=== PATIENT | male | born 1935 | race Caucasian/White ===

== ENCOUNTER → 2016-12-18 | Outpatient (CLI) | payer MEDICARE, BC ==
[2016-12-18 09:41] LABS: CHLORIDE,CL 108 mmol/L (98-110); SODIUM,NA 139 mmol/L (136-146)
== END | disposition home or self-care (01) ==
LOC: MW.CHFP 08:59
PROVIDERS: ATTEND Family Medicine
DX: I50.1 Left ventricular failure, unspecified (principal); I25.10 Atherosclerotic heart disease of native coronary artery without angina pectoris; N18.3 Chronic kidney disease, stage 3 (moderate)
CPT/HCPCS: 36415; 80053; 80061; 99214

== ENCOUNTER 2020-06-14 01:26 | Emergency (ER) | payer MEDICARE, BC ==
[2020-06-14] MEDS ORDERED: Diphtheria,Pertussis(Acell),Tetanus Vaccine 0.5 ML Syringe IM ONE (01:31)
--- NOTE | 2020-06-14 01:34 | EDM.PDOC ---
ED HPI GENERAL MEDICAL PROBLEM - General Stated Complaint: FELL Time Seen by Provider: 06/14/20 01:29 Source of Information: Reports: Patient History Limitations: Reports: Other (dementia) - History of Present Illness INITIAL COMMENTS - FREE TEXT/NARRATIVE: 84M presents s/p fall. H/o dementia. Family heard patient fall in bathroom. He hit the side of his head and also had bleeding from RUE. Patient without complaints. - Related Data Allergies Allergy/AdvReac Type Severity Reaction Status Date / Time amoxicillin Allergy Cannot Verified 04/20/19 21:26 Remember carbamazepine [From Tegretol] Allergy Rash Verified 04/20/19 21:26 cefaclor [Cefaclor] Allergy Hives Verified 04/20/19 21:26 erythromycin base Allergy Cannot Verified 04/20/19 21:26 [From E.E.S.] Remember erythromycin lactobionate Allergy Hives Verified 04/20/19 21:26 [From Erythrocin] gentamicin [Gentamicin] Allergy Rash Verified 04/20/19 21:26 naproxen sodium [From Aleve] Allergy Stomach Verified 04/20/19 21:26 Upset oxaprozin [From Daypro] Allergy Stomach Verified 04/20/19 21:26 Upset oxycodone HCl [From Percocet] Allergy Weakness Verified 04/20/19 21:26 Penicillins Allergy Hives Verified 04/20/19 21:26 propoxyphene Allergy Cannot Verified 04/20/19 21:26 [From Darvocet-N 100] Remember simvastatin Allergy Blurred Verified 04/20/19 21:26 Vision tramadol Allergy Hallucinati Verified 04/20/19 21:26 ons vancomycin Allergy Rash Verified 04/20/19 21:26 Home Meds: Home Meds Aspirin [Lite Coat Aspirin] 325 mg PO DAILY 04/20/19 [History] Bumetanide 0.5 mg PO DAILY 04/20/19 [History] Metoprolol Tartrate 100 mg PO BID 04/20/19 [History] Pravastatin [Pravachol] 40 mg PO DAILY 04/20/19 [History] ramipriL [Ramipril] 2.5 mg PO DAILY 04/20/19 [History] Acetaminophen [Tylenol] 650 mg PO Q6H PRN tablet 04/24/19 [Rx] Past Medical History Cardiovascular History: Reports: High Cholesterol, Hypertension - Infectious Disease History Infectious Disease History: Reports: Chicken Pox - Past Surgical History Cardiovascular Surgical History: Reports: Coronary Artery Bypass GI Surgical History: Reports: Cholecystectomy, Hernia, Inguinal Musculoskeletal Surgical History: Reports: Other (See Below) Other Musculoskeletal Surgeries/Procedures:: Hip surgery x2, Social & Family History - Caffeine Use Caffeine Use: Reports: Coffee - Living Situation & Occupation Living situation: Reports: , with Spouse Occupation: Retired ED ROS GENERAL - Review of Systems Review Of Systems: Comprehensive ROS is negative, except as noted in HPI. ED EXAM, GENERAL - Physical Exam Exam: See Below Exam Limited By: No Limitations General Appearance: Alert, WD/WN, No Apparent Distress Eye Exam: Bilateral Eye: PERRL Head: Normocephalic Neck: Normal Inspection, Non-Tender Respiratory/Chest: No Respiratory Distress, Lungs Clear, Normal Breath Sounds, No Accessory Muscle Use, Chest Non-Tender Cardiovascular: Normal Peripheral Pulses, Regular Rate, Rhythm GI/Abdominal: Soft, Non-Tender, No Distention Back Exam: No: Vertebral Tenderness Extremities: Normal Inspection Neurological: Alert, Other (moving all extremities) Skin Exam: Warm, Dry, Other (abrasion to RUE without active bleeding) ED GENERAL MEDICAL PROCEDURES - Laceration/Wound Repair Right Posterior Head Appearance: Subcutaneous Distal NVT: Neuro & Vascular Intact Skin Prep: Chlorhexidine (Hibiciens) Saline irrigation (cc's): 100 Closed with: Ailyn # of Sutures: 2 Tetanus Status Addressed: Yes Complications: No Course - Vital Signs Last Recorded V/S: Last Vital Signs Temp 96.7 F L 06/14/20 01:36 Pulse 75 06/14/20 01:36 Resp 18 06/14/20 01:36 BP 114/82 06/14/20 01:36 Pulse Ox 96 06/14/20 01:36 - Orders/Labs/Meds Orders: Active Orders 24 hr Category Date Time Status Blood Glucose Check, Bedside [RC] ONETIME Care 06/14/20 01:29 Active EKG Documentation Completion [RC] STAT Care 06/14/20 01:29 Active Vaccines to be Administered [RC] PER UNIT ROUTINE Care 06/14/20 01:31 Active Labs: Laboratory Tests 06/14/20 06/14/20 06/14/20 Range/Units 01:57 02:40 02:40 WBC 8.77 (4.0-11.0) K/uL RBC 3.00 L (4.50-5.90) M/uL Hgb 10.3 L (13.0-17.0) g/dL Hct 31.8 L (38.0-50.0) % MCV 106.0 H (80.0-98.0) fL MCH 34.3 H (27.0-32.0) pg MCHC 32.4 (31.0-37.0) g/dL RDW Std Deviation 51.9 (28.0-62.0) fl RDW Coeff of Zachary 14 (11.0-15.0) % Plt Count 213 (150-400) K/uL MPV 9.30 (7.40-12.00) fL Neut % (Auto) 82.8 H (48.0-80.0) % Lymph % (Auto) 9.4 L (16.0-40.0) % Florence % (Auto) 6.3 (0.0-15.0) % Eos % (Auto) 1.3 (0.0-7.0) % Baso % (Auto) 0.2 (0.0-1.5) % Neut # (Auto) 7.3 H (1.4-5.7) K/uL Lymph # (Auto) 0.8 (0.6-2.4) K/uL Florence # (Auto) 0.6 (0.0-0.8) K/uL Eos # (Auto) 0.1 (0.0-0.7) K/uL Baso # (Auto) 0.0 (0.0-0.1) K/uL Sodium 137 (136-148) mmol/L Potassium 4.6 (3.5-5.1) mmol/L Chloride 107 (98-107) mmol/L Carbon Dioxide 22.0 (21.0-32.0) mmol/L BUN 57 H (7.0-18.0) mg/dL Creatinine 2.3 H (0.8-1.3) mg/dL Est Cr Clr Drug Dosing 20.80 mL/min Estimated GFR (MDRD) 27.1 ml/min Glucose 123 H (74-106) mg/dL POC Glucose (60-110) mg/dL Calcium 8.6 (8.5-10.1) mg/dL Magnesium 2.1 (1.8-2.4) mg/dL Total Bilirubin 0.1 L (0.2-1.0) mg/dL AST 14 L (15-37) IU/L ALT 16 (14-63) IU/L Alkaline Phosphatase 84 (46-116) U/L Troponin I < 0.050 (0.000-0.056) ng/mL B-Natriuretic Peptide (<100) PG/ML Total Protein 7.4 (6.4-8.2) g/dL Albumin 3.4 (3.4-5.0) g/dL Globulin 4.0 (2.6-4.0) g/dL Albumin/Globulin Ratio 0.9 (0.9-1.6) TSH 3rd Generation 2.43 (0.36-3.74) uIU/mL Urine Color GREEN Urine Appearance SLT CLOUDY Urine pH 5.5 (5.0-8.0) Ur Specific [place] 1.020 (1.001-1.035) Urine Protein 30 H (NEGATIVE) mg/dL Urine Glucose (UA) NEGATIVE (NEGATIVE) mg/dL Urine Ketones NEGATIVE (NEGATIVE) mg/dL Urine Occult Blood TRACE-INTACT H (NEGATIVE) Urine Nitrite NEGATIVE (NEGATIVE) Urine Bilirubin NEGATIVE (NEGATIVE) Urine Urobilinogen 0.2 (<2.0) EU/dL Ur Leukocyte Esterase SMALL H (NEGATIVE) Urine RBC 1-3 (0-2/HPF) Urine WBC 20-30 (0-5/HPF) Ur Epithelial Cells OCCASIONAL (NONE-FEW) Urine Bacteria FEW (NEGATIVE) 06/14/20 06/14/20 Range/Units 02:40 02:41 WBC (4.0-11.0) K/uL RBC (4.50-5.90) M/uL Hgb (13.0-17.0) g/dL Hct (38.0-50.0) % MCV (80.0-98.0) fL MCH (27.0-32.0) pg MCHC (31.0-37.0) g/dL RDW Std Deviation (28.0-62.0) fl RDW Coeff of Zachary (11.0-15.0) % Plt Count (150-400) K/uL MPV (7.40-12.00) fL Neut % (Auto) (48.0-80.0) % Lymph % (Auto) (16.0-40.0) % Florence % (Auto) (0.0-15.0) % Eos % (Auto) (0.0-7.0) % Baso % (Auto) (0.0-1.5) % Neut # (Auto) (1.4-5.7) K/uL Lymph # (Auto) (0.6-2.4) K/uL Florence # (Auto) (0.0-0.8) K/uL Eos # (Auto) (0.0-0.7) K/uL Baso # (Auto) (0.0-0.1) K/uL Sodium (136-148) mmol/L Potassium (3.5-5.1) mmol/L Chloride (98-107) mmol/L Carbon Dioxide (21.0-32.0) mmol/L BUN (7.0-18.0) mg/dL Creatinine (0.8-1.3) mg/dL Est Cr Clr Drug Dosing mL/min Estimated GFR (MDRD) ml/min Glucose (74-106) mg/dL POC Glucose 112 H (60-110) mg/dL Calcium (8.5-10.1) mg/dL Magnesium (1.8-2.4) mg/dL Total Bilirubin (0.2-1.0) mg/dL AST (15-37) IU/L ALT (14-63) IU/L Alkaline Phosphatase (46-116) U/L Troponin I (0.000-0.056) ng/mL B-Natriuretic Peptide 119 H (<100) PG/ML Total Protein (6.4-8.2) g/dL Albumin (3.4-5.0) g/dL Globulin (2.6-4.0) g/dL Albumin/Globulin Ratio (0.9-1.6) TSH 3rd Generation (0.36-3.74) uIU/mL Urine Color Urine Appearance Urine pH (5.0-8.0) Ur Specific [place] (1.001-1.035) Urine Protein (NEGATIVE) mg/dL Urine Glucose (UA) (NEGATIVE) mg/dL Urine Ketones (NEGATIVE) mg/dL Urine Occult Blood (NEGATIVE) Urine Nitrite (NEGATIVE) Urine Bilirubin (NEGATIVE) Urine Urobilinogen (<2.0) EU/dL Ur Leukocyte Esterase (NEGATIVE) Urine RBC (0-2/HPF) Urine WBC (0-5/HPF) Ur Epithelial Cells (NONE-FEW) Urine Bacteria (NEGATIVE) Meds: Medications Discontinued Medications Generic Name Dose Route Start Last Admin Trade Name Juan Franciscoq PRN Reason Stop Dose Admin Diphtheria/Tetanus/Acell Pertussis 0.5 ml 06/14/20 01:31 06/14/20 03:32 Adacel IM 06/14/20 01:32 0.5 ml .ONCE ONE Administration Sodium Chloride 250 mls @ 999 mls/hr 06/14/20 03:18 06/14/20 03:33 Normal Saline IV 06/14/20 03:33 999 mls/hr .BOLUS ONE Administration - Re-Assessments/Exams Free Text/Narrative Re-Assessment/Exam: 06/14/20 01:57 Will get labs/imaging, reassess, Tdap, lac repair head. Free Text/Narrative Re-Assessment/Exam: 06/14/20 03:35 Labs remarkable for mild elevated Cr; 250cc bolus ordered. Labs otherwise grossly unremarkable. Imaging unremarkable. Will d/c with instructions to return in1-wk for staple removal Departure - Departure Time of Disposition: 03:34 Disposition: Home, Self-Care 01 Condition: Good Clinical Impression: Scalp laceration Qualifiers: Encounter type: initial encounter Qualified Code(s): S01.01XA - Laceration without foreign body of scalp, initial encounter CHI (closed head injury) Qualifiers: Encounter type: initial encounter Qualified Code(s): S09.90XA - Unspecified injury of head, initial encounter - Discharge Information Instructions: Sutures, Ailyn, or Adhesive Wound Closure, [id number] Referrals: Jairo Cazares MD [Primary Care Provider] - 1 Week Additional Instructions: The following information is given to patients seen in the emergency department who are being discharged to home. This information is to outline your options for follow-up care. We provide all patients seen in our emergency department with a follow-up referral. The need for follow-up, as well as the timing and circumstances, are variable depending upon the specifics of your emergency department visit. If you don't have a primary care physician on staff, we will provide you with a referral. We always advise you to contact your personal physician following an emergency department visit to inform them of the circumstance of the visit and for follow-up with them and/or the need for any referrals to a consulting specialist. The emergency department will also refer you to a specialist when appropriate. This referral assures that you have the opportunity for follow-up care with a specialist. All of these measure are taken in an effort to provide you with optimal care, which includes your follow-up. Under all circumstances we always encourage you to contact your private physician who remains a resource for coordinating your care. When calling for follow-up care, please make the office aware that this follow-up is from your recent emergency room visit. If for any reason you are refused follow-up, please contact the [facility] Emergency Department at and asked to speak to the emergency department charge nurse. Sepsis Event Note (ED) - Focused Exam Vital Signs: Vital Signs Temp Pulse Resp BP Pulse Ox 06/14/20 01:36 96.7 F L 75 18 114/82 96 - My Orders Last 24 Hours: My Active Orders 06/14/20 01:29 Blood Glucose Check, Bedside [RC] ONETIME EKG Documentation Completion [RC] STAT 06/14/20 01:31 Vaccines to be Administered [RC] PER UNIT ROUTINE - Assessment/Plan Last 24 Hours: My Active Orders 06/14/20 01:29 Blood Glucose Check, Bedside [RC] ONETIME EKG Documentation Completion [RC] STAT 06/14/20 01:31 Vaccines to be Administered [RC] PER UNIT ROUTINE
--- NOTE | 2020-06-14 02:43 | CR ---
INDICATION: Status post chest injury from fall. Not following instructions for exams TECHNIQUE: Chest radiograph 1 view COMPARISON: 04/20/2019 FINDINGS: Moderate degradation of image quality noted due to body habitus. Mediastinum: Previous median sternotomy and coronary artery bypass grafting (CABG) noted. The heart silhouette is normal in size and morphology. Lung: Very small lung volumes are present with reticulonodular opacities in the subpleural aspects of both lungs, likely due to pulmonary fibrosis. No sign of pleural effusion seen. No pneumothorax is identified. Bone and Soft tissue: Severe diffuse osteopenia is noted. IMPRESSION: 1. Very small lung volumes are present with reticulonodular opacities in the subpleural aspects of both lungs, likely due to pulmonary fibrosis. The appearance is unchanged from prior exam. Dictated by Giuseppe Galdamez MD @ 06/14/2020 2:42:04 AM Dictated by: Giuseppe Galdamez MD @ 06/14/2020 02:42:14 (Electronically Signed)
--- NOTE | 2020-06-14 02:45 | CT ---
INDICATION: Status post head injury from fall. Not following instructions for exams TECHNIQUE: CT Head without i.v. contrast. COMPARISON: 04/20/19 FINDINGS: CSF space: Unremarkable for age. Brain: No evidence of mass, acute infarction or hemorrhage is seen. No mass-effect or midline shift is seen. Mild diffuse cortical atrophy is noted. Moderate patchy regions of low attenuation are present in the periventricular white matter, likely due to chronic microvascular ischemic changes. The brain parenchyma is otherwise normal in appearance with preservation of the paredes-white matter junction. Calvarium: The visualized paranasal sinuses are well aerated. The mastoid air cells are clear. The visualized orbits are grossly unremarkable. The patient is status post prior bilateral cataract removal. The calvarium is unremarkable in appearance with no fractures identified. IMPRESSION: 1. No evidence of acute infarction, intracranial hemorrhage, or mass-effect seen. Please note that all CT scans at this facility use dose modulation, iterative reconstruction, and/or weight-based dosing when appropriate to reduce radiation dose to as low as reasonably achievable. Dictated by: Giuseppe Galdamez MD @ 06/14/2020 02:44:49 (Electronically Signed)
--- NOTE | 2020-06-14 02:45 | CR ---
INDICATION: Status post pelvis injury from fall. TECHNIQUE: Pelvis radiograph 2 views COMPARISON: None FINDINGS: Bone: No acute fractures or aggressive bone lesions are identified. Severe degenerative disc narrowing with endplate osteophytes are present at L3-4 and L4-5. Severe diffuse osteopenia is noted. Joint: A right total hip arthroplasty with 2 cerclage wires are noted. A left bipolar hip prosthesis is seen. The visualized sacroiliac joints are unremarkable in appearance. The pubic symphysis is normal in appearance. Soft tissue: Unremarkable. The visualized bowel gas pattern of the pelvis is unremarkable in appearance. No radiopaque foreign bodies are seen. Moderate bilateral vascular calcifications are noted. IMPRESSION: 1. No acute osseous injuries or abnormalities are noted. Dictated by Giuseppe Galdamez MD @ 06/14/2020 2:43:13 AM Dictated by: Giuseppe Galdamez MD @ 06/14/2020 02:43:18 (Electronically Signed)
--- NOTE | 2020-06-14 02:49 | CT ---
INDICATION: Status post cervical spine injury from fall TECHNIQUE: CT cervical spine without i.v. contrast. Coronal and sagittal reformats were obtained. COMPARISON: None FINDINGS: Alignment: Grade 1 anterolisthesis C4-5 is noted. Bone: No acute fractures or aggressive bone lesions are identified. Disc: Severe degenerative disc narrowing with endplate osteophytes present at C5-6 to T2-3. Scattered facet osteoarthritis is noted bilaterally. Soft tissue: The prevertebral soft tissues are unremarkable in appearance. Subpleural pulmonary fibrosis is seen within the visualized apices. Bilateral calcified carotid plaques are noted. There is a vascular stent noted within the left subclavian artery. IMPRESSION: 1. No acute osseous injuries are identified. Dictated by Giuseppe Galdamez MD @ 06/14/2020 2:47:34 AM Please note that all CT scans at this facility use dose modulation, iterative reconstruction, and/or weight-based dosing when appropriate to reduce radiation dose to as low as reasonably achievable. Dictated by: Giuseppe Galdamez MD @ 06/14/2020 02:47:49 (Electronically Signed)
[2020-06-14 03:16] LABS: BLOOD UREA NITROGEN,BUN 57 mg/dL (7.0-18.0); CHLORIDE,CL 107 mmol/L (98-107); GLUCOSE RANDOM 123 mg/dL (74-106); POTASSIUM,K 4.6 mmol/L (3.5-5.1); SODIUM,NA 137 mmol/L (136-148)
[2020-06-14] MEDS ORDERED: Sodium Chloride 0.9% 250 ML IV ONE (03:18)
== END 2020-06-14 04:24 | disposition home or self-care (01) ==
LOC: MW.ED 01:26
DX: S01.01XA Laceration without foreign body of scalp, initial encounter (principal); S40.811A Abrasion of right upper arm, initial encounter; E78.00 Pure hypercholesterolemia, unspecified; F03.90 Unspecified dementia, unspecified severity, without behavioral disturbance, psychotic disturbance, mood disturbance, and anxiety; I10 Essential (primary) hypertension; Z88.1 Allergy status to other antibiotic agents; Z88.0 Allergy status to penicillin; Z88.5 Allergy status to narcotic agent; Z79.82 Long term (current) use of aspirin; Z79.899 Other long term (current) drug therapy; Z23 Encounter for immunization; W22.8XXA Striking against or struck by other objects, initial encounter
CPT/HCPCS: 12001; 36415; 70450; 71045; 72125; 72170; 80053; 81001; 82962; 83735; 83880; 84443; 84484; 85025; 90471; 90715; 93005; 99284; J7030; 99282